=== PATIENT | male | born 1985 | race Caucasian/White ===

== ENCOUNTER 2018-09-03 14:19 | Emergency (ER) | payer SELFPAY ==
[~2018-09-03] VITALS: Ht 175.3 cm; Wt 100.0 kg
[2018-09-03 14:25] VITALS: BP 131/85
== END 2018-09-03 18:15 | disposition left against medical advice (07) ==
LOC: EMS 14:22 → EDBD 14:22 → EMS 18:15
DX: Z00.8 Encounter for other general examination (principal); Z53.21 Procedure and treatment not carried out due to patient leaving prior to being seen by health care provider

== ENCOUNTER 2018-09-15 08:40 | Emergency (ER) | payer MEDICAID ==
[~2018-09-15] VITALS: Ht 167.6 cm; Wt 90.9 kg
[2018-09-15 10:00] VITALS: BP 140/72
== END 2018-09-15 10:38 | disposition home or self-care (01) ==
LOC: EMS 08:41
DX: F32.9 Major depressive disorder, single episode, unspecified (principal); F17.210 Nicotine dependence, cigarettes, uncomplicated; Z87.820 Personal history of traumatic brain injury
CPT/HCPCS: 99406